=== PATIENT | male | born 2005 | race Caucasian/White ===

== ENCOUNTER 2025-01-14 19:57 | Emergency (ER) | payer OTHER | END 2025-01-14 21:28 | disposition home or self-care (01) | LOC: CSHERS 19:57 | DX: J02.9 Acute pharyngitis, unspecified (principal); R59.0 Localized enlarged lymph nodes; H74.8X3 Other specified disorders of middle ear and mastoid, bilateral | CPT/HCPCS: 87081; 87428; 87430; 99283 ==